=== PATIENT | female | born 1950 | race African-American/Black ===

== ENCOUNTER 2017-02-01 18:47 | Emergency (ER) | payer MEDICARE, OTHER ==
[~2017-02-01] VITALS: Ht 167.6 cm; Wt 54.4 kg
[2017-02-01 19:00] VITALS: BP 135/85
--- NOTE | 2017-02-01 19:03 | Emergency Room Report ---
History of Present Illness General Chief Complaint: Dyspnea/Respdistress Source: Patient Present Illness HPI 66-year-old female, coming from intermediate, sent in for hypoxia. EMS states that it was reported that she was satting 88 on room and, when they arrived she was satting 95 on 2 L nasal cannula. Patient is awake alert, oriented x2, however does not know why she is here in the emergency room. She is currently denying any complaints at this time just that she wants a glass of water Patient noted to be hypoxic on room air, 80-90 Allergies: Coded Allergies: PENICILLINS (Verified Allergy, Unknown, 02/01/17) Patient History Past Medical History: see triage record Past Surgical History: none Pertinent Family History: none Reviewed Nursing Documentation: PMH: Agreed, PSxH: Agreed Nursing Documentation-PMH Hx Hypertension: Yes Review of Systems All Other Systems: negative except mentioned in HPI Physical Exam Vital Signs Date Time Temp Pulse Resp B/P (MAP) Pulse Ox O2 Delivery O2 Flow Rate FiO2 02/01/17 18:48 97.2 140 18 153/96 93 Room Air Sp02 EP Interpretation: abnormal - 88 on RA, 100 on 2L General Appearance: other - Ill-appearing middle-aged female, awake, appears to be in mild distress, however she is speaking in complete sentences, confused , Chronically Ill Head: normocephalic, atraumatic Eyes: bilateral eye normal inspection, bilateral eye PERRL, bilateral eye EOMI ENT: normal ENT inspection, normal pharynx, normal voice, moist mucus membranes Neck: normal inspection, full range of motion, supple Respiratory: other - Tachypnea, hypoxic, coarse breath sounds auscultated R lung base Cardiovascular #1: normal peripheral pulses, no edema, tachycardia Cardiovascular #2: 2+ radial (R), 2+ radial (L) Gastrointestinal: normal inspection, non tender, soft, non-distended, no guarding Musculoskeletal: normal inspection, back normal, normal range of motion, non- tender Neurologic: responsive, motor strength/tone normal, sensory intact, other - aox2, moves all ext spont Psychiatric: other - confused Skin: normal inspection, normal color, no rash, warm/dry, well hydrated, normal turgor Procedures Critical Care Time Critical Care Time 40 minutes of CC time 66-year-old female, hypoxia VS:, Hypoxic Tachycardic PLAN: IV access, labs, lactate, troponin, Blood/Urine Cx, Abx, IVF Anticipate admission to Tele vs. JACKI CC time also includes review of labs, review of EMR, discussion with family and paperwork from SNF, d/w hospitalist CC could include dosing of pressors, additional Abx CC time does not include procedures Medical Decision Making Diagnostic Impression: Primary Impression: Respiratory distress Additional Impressions: Hypoxia Severe sepsis HCAP (healthcare-associated pneumonia) ER Course 66-year-old female, sent in from intermediate for hypoxia DDX: Pneumonia/CHF/ACS Sepsis 2/2 UTI, PNA, bacteremia Plan: O2 via nasal cannula IV access - 30cc/kg bolus NS Obtain labs including cbc, bmp, blood culture, blood gas, lactate, ua, ucx CXR EKG Broad spectrum ABX ER course: Pt's airway remains patent, supplemental O2 provided by NC Patient given NS at 30cc/kg bolus Patient's BP has remained stable with MAP > 65 Given broad spectrum abx - vancomycin and levaquin (pt allergic to PCN) Sepsis Re-examination Time: 8:40pm VS: Temp 98 HR 120 BP 126/79 RR 18 CVS: RRR Respiratory: R sided coarse b/s Peripheral pulses: 2+ radial Capillary refill: <2 seconds Skin exam: warm, dry, no rash, not mottled Disposition: Patient will admitted to telemetry Patient requires close monitoring of respiratory/hemodynamic status and continuation of IV antibiotics. D/W Hospitalist Dr Nolasco Please note that this Emergency Department Report was dictated using [employer] raker technology software, occasionally this can lead to erroneous entry secondary to interpretation by the dictation equipment. EKG Diagnostic Results EP Interpretation: Yes Rate: Tachycardic Rhythm: NSR ST Segments: possile TWI aVL ASA given to patient: No Rhythm Strip EP Interpretation: Yes Rate: 139 Rhythm: NSR, no PVCs, no ectopy Chest X-ray CXR: Ordered: Yes 1 view Indication: Hypoxia EP interpretation: Yes Interpretation: No consolidation, no effusion, no PTX, no acute cardiopulmonary disease Impression: No acute disease Electronically signed by Ev Yeung MD Laboratory Tests Test 02/01/17 19:15 White Blood Count 15.9 K/UL (4.8-10.8) H Red Blood Count 4.32 M/UL (4.20-5.40) Hemoglobin 12.2 G/DL (12.0-16.0) Hematocrit 38.7 % (37.0-47.0) Mean Corpuscular Volume 90 FL (80-99) Mean Corpuscular Hemoglobin 28.3 PG (27.0-31.0) Mean Corpuscular Hemoglobin Concent 31.6 G/DL (32.0-36.0) L Red Cell Distribution Width 14.4 % (11.6-14.8) Platelet Count 509 K/UL (150-450) H Mean Platelet Volume 6.3 FL (6.5-10.1) L Neutrophils (%) (Auto) 89.8 % (45.0-75.0) H Lymphocytes (%) (Auto) 6.4 % (20.0-45.0) L Monocytes (%) (Auto) 3.0 % (1.0-10.0) Eosinophils (%) (Auto) 0.2 % (0.0-3.0) Basophils (%) (Auto) 0.7 % (0.0-2.0) Sodium Level 133 MMOL/L (136-145) L Potassium Level 5.1 MMOL/L (3.5-5.1) Chloride Level 100 MMOL/L (98-107) Carbon Dioxide Level 23 MMOL/L (21-32) Anion Gap 10 mmol/L (5-15) Blood Urea Nitrogen 23 mg/dL (7-18) H Creatinine 1.1 MG/DL (0.55-1.30) Estimate Glomerular Filtration Rate > 60 mL/min (>60) Glucose Level 133 MG/DL (74-106) H Lactic Acid Level 2.20 mmol/L (0.66-2.22) Calcium Level 9.3 MG/DL (8.5-10.1) Total Bilirubin 1.1 MG/DL (0.2-1.0) H Direct Bilirubin 0.5 MG/DL (0.0-0.3) H Aspartate Amino Transferase (AST) 82 U/L (15-37) H Alanine Aminotransferase (ALT) 34 U/L (12-78) Alkaline Phosphatase 119 U/L (46-116) H Troponin I 0.000 ng/mL (0.000-0.056) Pro-B-Type Natriuretic Peptide 324 pg/mL (0-125) H Total Protein 9.0 G/DL (6.4-8.2) H Albumin 1.9 G/DL (3.4-5.0) L Globulin 7.1 g/dL Albumin/Globulin Ratio 0.3 (1.0-2.7) L Last Vital Signs Date Time Temp Pulse Resp B/P (MAP) Pulse Ox O2 Delivery O2 Flow Rate FiO2 02/01/17 18:48 97.2 140 18 153/96 93 Room Air Disposition: ADMITTED INPATIENT Condition: Serious Ev Yeung M.D. Feb 01, 2017 19:03
[2017-02-01] MEDS ORDERED: Vancomycin 1 GM in NS 275 ML IVPB ONE (19:30)
[2017-02-01 19:44] LABS: MEAN CORPUSCULAR HEMOGLOBIN 28.3 PG (27.0-31.0); MEAN CORPUSCULAR HGB CONC 31.6 G/DL (32.0-36.0); MEAN CORPUSCULAR VOLUME 90 FL (80-99); MEAN PLATELET VOLUME 6.3 FL (6.5-10.1); PLATELET COUNT 509 K/UL (150-450); RED BLOOD COUNT 4.32 M/UL (4.20-5.40); RED CELL DISTRIBUTION WIDTH 14.4 % (11.6-14.8); WHITE BLOOD COUNT 15.9 K/UL (4.8-10.8)
[2017-02-01 19:45] LABS: BASOPHILS % (AUTO) 0.7 % (0.0-2.0); EOSINOPHILS % (AUTO) 0.2 % (0.0-3.0); LYMPHOCYTES % (AUTO) 6.4 % (20.0-45.0); NEUTROPHILS % (AUTO) 89.8 % (45.0-75.0)
[2017-02-01] MEDS ORDERED: Acetaminophen 650 MG SUPP RECTAL ONE (19:45)
[2017-02-01] MEDS ORDERED: NS 1000ml 1,600 ML IVLG ONE (19:45)
[2017-02-01] MEDS ORDERED: Vancomycin 1gm inj IVPB ONE (19:55)
[2017-02-01 19:58] LABS: ANION GAP 10 mmol/L (5-15); CALCIUM 9.3 MG/DL (8.5-10.1); CARBON DIOXIDE 23 MMOL/L (21-32); CHLORIDE 100 MMOL/L (98-107); CREATININE 1.1 MG/DL (0.55-1.30); GLOMERULAR FILTRATION RATE > 60 mL/min (>60); POTASSIUM 5.1 MMOL/L (3.5-5.1); SODIUM 133 MMOL/L (136-145)
[2017-02-01 20:08] LABS: REFLEX LACTIC ACID YES OR NO YES
--- NOTE | 2017-02-01 20:12 | History & Physical ---
History and Physical History & Physicial 66-year-old female, transferred from a [place] [facility], with shortness of breath and hypoxia. Patient was noted to have an oxygen saturation of 88%. Patient is awake alert, and has refused transfer due to lack of po intake and malnutrition. she as well refused GT. She is currently denying any other complaints but was noted to have leukocytosis and pneumonia on chest Xray and being admitted for the above no recent fevers or chills noted Allergies: PENICILLINS (Verified Allergy, Unknown, 02/01/17) Past Medical History: pneumonia and malnutrition Past Surgical History: none Pertinent Family History: none Reviewed of systems: poor po intake, diffuse pain physical exam WDWN NAD clear breath sounds bilaterally with some rhonchi [id number] without MRG NABS nontender no HSM no CCE nonfocal weak, thin, cachectic Labs Test 02/01/17 19:15 White Blood Count 15.9 K/UL (4.8-10.8) Red Blood Count 4.32 M/UL (4.20-5.40) Hemoglobin 12.2 G/DL (12.0-16.0) Hematocrit 38.7 % (37.0-47.0) Mean Corpuscular Volume 90 FL (80-99) Mean Corpuscular Hemoglobin 28.3 PG (27.0-31.0) Mean Corpuscular Hemoglobin Concent 31.6 G/DL (32.0-36.0) Red Cell Distribution Width 14.4 % (11.6-14.8) Platelet Count 509 K/UL (150-450) Mean Platelet Volume 6.3 FL (6.5-10.1) Neutrophils (%) (Auto) 89.8 % (45.0-75.0) Lymphocytes (%) (Auto) 6.4 % (20.0-45.0) Monocytes (%) (Auto) 3.0 % (1.0-10.0) Eosinophils (%) (Auto) 0.2 % (0.0-3.0) Basophils (%) (Auto) 0.7 % (0.0-2.0) Sodium Level 133 MMOL/L (136-145) Potassium Level 5.1 MMOL/L (3.5-5.1) Chloride Level 100 MMOL/L (98-107) Carbon Dioxide Level 23 MMOL/L (21-32) Anion Gap 10 mmol/L (5-15) Blood Urea Nitrogen 23 mg/dL (7-18) Creatinine 1.1 MG/DL (0.55-1.30) Estimat Glomerular Filtration Rate > 60 mL/min (>60) Glucose Level 133 MG/DL (74-106) Lactic Acid Level 2.20 mmol/L (0.66-2.22) Calcium Level 9.3 MG/DL (8.5-10.1) Troponin I 0.000 ng/mL (0.000-0.056) IMPRESSION leukocytosis possible sepsis possible pneumonia malnutrition failure to thrive mild dehydration PLAN IV fluids IV antibiotics respiratory care follow up for change pain control consider GT if patient agrees impression, plan, and exam edited and reviewed in detail care discussed with SHA BRUCE Feb 01, 2017 20:12
[2017-02-01 20:15] LABS: ALANINE AMINOTRANSFERASE 34 U/L (12-78); ALBUMIN/GLOBULIN RATIO 0.3 (1.0-2.7); ASPARTATE AMINO TRANSFERASE 82 U/L (15-37)
[2017-02-01 20:20] LABS: BILIRUBIN,DIRECT 0.5 MG/DL (0.0-0.3)
[2017-02-01] MEDS ORDERED: Heparin 5000 units/ml inj SUBQ SCH (21:00)
[2017-02-01 21:16] LABS: ABG ALLEN TEST POSITIVE; ABG BASE EXCESS -1.6; ABG PCO2 29.9 mmHg (35.0-45.0)
[2017-02-01 21:45] VITALS: BP 117/65
[2017-02-02] MEDS ORDERED: Levofloxacin 500mg tab ORAL SCH (09:00)
--- NOTE | 2017-02-02 10:02 | Diagnostic Imaging Report ---
Indication: PAIN Technique: One view of the chest Comparison: none Findings: There is extensive bilateral nodular interstitial disease as well as perihilar airspace disease on the right. Pleural spaces are clear. Heart size is upper limits normal. Aorta is tortuous Impression: Diffuse nodular interstitial disease and right-sided airspace disease. Differential is extensive, including pulmonary edema, infectious and noninfectious inflammatory processes disseminated neoplasm. Correlate with clinical history and findings. Findings discussed by phone with Dr. Nolasco at the time of interpretation
--- NOTE | 2017-02-02 18:36 | Cardiology Report ---
APPROVED REPORT EKG Measurement Heart [id number] Sinus tachycardia Otherwise normal ECG
== END 2017-02-01 21:45 | disposition short-term general hospital (02) ==
LOC: EDBD 18:47 → EMR 19:54
DX: D72.829 Elevated white blood cell count, unspecified (principal); E46 Unspecified protein-calorie malnutrition; Z68.1 Body mass index [BMI] 19.9 or less, adult; R62.7 Adult failure to thrive; E86.0 Dehydration; R09.02 Hypoxemia; R06.02 Shortness of breath; Z88.0 Allergy status to penicillin
CPT/HCPCS: 36415; 36600; 71010; 80053; 82248; 82803; 83605; 83880; 84484; 85025; 87040; 93005; 96361; 96365; 96366; 96372; 96375; 99291; J1956; J3370; J7050